=== PATIENT | female | born 1985 | race Hispanic/Latino ===

== ENCOUNTER → 2023-08-05 09:29 | Outpatient (CLI) | payer OTHER, SELFPAY ==
--- NOTE | 2023-08-05 09:31 | DI.RAD.S_ITS ---
PROCEDURE: XR ANKLE LT MIN 3V INDICATIONS: medial ankle pain TECHNIQUE: 3 views of the ankle were acquired. COMPARISON: None. FINDINGS: Bones: No fractures or dislocations. Ankle mortise is normally aligned. No suspicious bony lesions. Soft tissues: No tibiotalar joint effusion. Achilles tendon appears normal. IMPRESSION: No acute bony abnormality or significant effusion. Approved by: Poncho Pittman M.D. on 08/05/2023 at 12:50
== END ==
PROVIDERS: Referring Provider Nurse Practitioner Family; Visit Provider Nurse Practitioner Family
DX: M25.572 Pain in left ankle and joints of left foot (principal)
CPT/HCPCS: 73610

== ENCOUNTER → 2024-08-10 08:17 | Outpatient (CLI) | payer OTHER, SELFPAY ==
[2024-08-10 09:44] LABS: Follicle Stimulating Hormone 2.92 mIU/mL; Luteinizing Hormone 2.82 mIU/mL
[2024-08-10 10:00] LABS: Estradiol, Total 40.5 pg/mL
== END ==
LOC: LAB 08:19
PROVIDERS: Referring Provider Obstetrics & Gynecology; Visit Provider Obstetrics & Gynecology
DX: N95.1 Menopausal and female climacteric states (principal)
CPT/HCPCS: 36415; 82670; 83001; 83002